=== PATIENT | female | born 1990 | race Caucasian/White ===

== ENCOUNTER 2019-09-22 10:22 | Emergency (ER) | payer OTHER ==
[~2019-09-22] VITALS: Ht 165.1 cm; Wt 90.7 kg
[2019-09-22] MEDS ORDERED: Motrin,Rufen800 MG PO (11:45)
== END 2019-09-22 11:57 | disposition home or self-care (01) ==
LOC: ED 10:22
DX: S40.021A Contusion of right upper arm, initial encounter (principal); Z91.041 Radiographic dye allergy status; E07.9 Disorder of thyroid, unspecified; V47.5XXA Car driver injured in collision with fixed or stationary object in traffic accident, initial encounter; Y93.89 Activity, other specified; Y92.488 Other paved roadways as the place of occurrence of the external cause; Y99.8 Other external cause status